=== PATIENT | female | born 1935 ===

== ENCOUNTER 2017-12-27 08:09 | Outpatient (CLI) | payer OTHER, BC ==
[~2017-12-27 08:09] MED LIST: MACRODANTIN100 MG; SYNTHROID88 MCG; VERAPAMIL ER180 MG
== END 2017-12-27 08:35 | disposition home or self-care (01) ==
LOC: TOM 08:09
DX: R10.30 Lower abdominal pain, unspecified (principal); K57.30 Diverticulosis of large intestine without perforation or abscess without bleeding

== ENCOUNTER 2018-05-20 06:40 | Outpatient (CLI) | payer OTHER, BC | END 2018-05-20 06:57 | disposition home or self-care (01) | LOC: RAD 06:40 | DX: S02.600A Fracture of unspecified part of body of mandible, unspecified side, initial encounter for closed fracture (principal); Q67.4 Other congenital deformities of skull, face and jaw ==

== ENCOUNTER 2018-12-30 14:36 | Emergency (ER) | payer OTHER, BC ==
[~2018-12-30] VITALS: Ht 160 cm; Wt 49.0 kg
[2018-12-30] MEDS ORDERED: ZOCOR20 MG (14:50)
[2018-12-30] MEDS ORDERED: COZAAR25 MG (14:51)
== END 2018-12-30 15:30 | disposition home or self-care (01) ==
LOC: ER 14:36
DX: R00.2 Palpitations (principal); F41.8 Other specified anxiety disorders

== ENCOUNTER 2019-02-02 08:18 | Outpatient (CLI) | payer OTHER, BC ==
[~2019-02-02 08:18] MED LIST changes: +COZAAR25 MG; +ZOCOR20 MG
== END 2019-02-02 08:36 | disposition home or self-care (01) ==
LOC: RAD 08:18
DX: J45.21 Mild intermittent asthma with (acute) exacerbation (principal); R06.02 Shortness of breath